=== PATIENT | male | born 1950 | race Caucasian/White ===

== ENCOUNTER 2016-12-25 08:21 | Emergency (ER) | payer OTHER ==
[~2016-12-25] VITALS: Ht 180.3 cm; Wt 77.1 kg
--- NOTE | 2016-12-25 08:35 | ED GENERAL ADULT ---
See Addendum History of Present Illness General Chief Complaint: General Adult Stated Complaint: CONSTIPATION X 1 WEEK Source: patient, family Exam Limitations: no limitations Vital Signs & Intake/Output Vital Signs & Intake/Output Vital Signs Date Time Temp Pulse Resp B/P Pulse O2 O2 Flow FiO2 Ox Delivery Rate 12/25 1623 99.0 88 18 98/54 93 Room Air 12/25 1310 99.3 90 20 120/63 94 Room Air 12/25 1131 98/58 12/25 1124 99.1 81 18 95/55 95 12/25 0909 Room Air Room Air 12/25 0826 96.4 102 18 138/89 95 Room Air Allergies Coded Allergies: NO KNOWN ALLERGIES (12/25/16) Reconcile Medications Acetaminophen (Tylenol Arthritis) 650 MG TABLET.ER 1 TAB PO Q6-PRN PRN PAIN ( Reported) Calcium Carbonate/Vitamin D3 (Calcium 500 + Vit D 200 Tablet) 500 MG-200 TABLET 1 TAB PO 1700 SUPPLEMENT (Reported) Cholecalciferol (Vitamin D3) (Vitamin D3) 2,000 UNIT TABLET 1 TAB PO DAILY SUPPLEMENT (Reported) Famotidine (Pepcid) 20 MG TABLET 2 TAB PO BID PRN GI (Reported) Labetalol HCl 100 MG TABLET 1 TAB PO BID HEART (Reported) Levothyroxine Sodium 75 MCG TABLET 1 TAB PO DAILY AC THYROID (Reported) Nivolumab (Opdivo) 100 MG/10 ML VIAL 240 MG IV CANCER (Reported) Olmesartan Medoxomil (Benicar) 40 MG TABLET 1 TAB PO DAILY HEART (Reported) Oxycodone HCl 5 MG TABLET 1 TAB PO Q4 HRS NEEDED PRN PAIN (Reported) [VARLILUMAB] CANCER (Reported) Triage Note: 66 Y/O MALE C/O CONSTIPATION X 10 DAYS. HAS RENAL CELL CARCINOMA AND WAS STARTED ON OXYCODONE IN NOVEMBER; HAS HAD DIFFICULTY MOVING BOWELS SINCE, DESPITE TRYING OTC MEDS INCLUDING MIRALAX AND FLEETS ENEMAS. C/O ABDOMINAL "SWELLING". ABDOMEN APPEARS FIRM IN TRIAGE. REPORTS INTERMITTENT NAUSEA AND DECREASED PO INTAKE WELL. Triage Nurses Notes Reviewed? yes Onset: Gradual Duration: day(s): Timing: recent history HPI: 12/25/16 8:40 am This is a 66-year-old man who presents to the emergency department for constipation. He has a history of renal cell carcinoma. He is status post right nephrectomy. He is been treated at [facility]. The onset of the symptoms have been gradual, the duration has been the last 10 days, the severity is significant as his symptoms required him to come to the emergency department for care. He has associated constipation and abdominal distention. He was also found to be hypotensive in the ED. He has been treated with BELIMUMAB The last dose was December 12 He presents with constipation. Also abdominal distention. No vomiting, no fever. His labs show significant leukocytosis mild hyperkalemia and CT scan shows carcinomatosis. He is been accepted for transfer to [facility]. 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 No Review of Systems Review of Systems Constitutional: Reports: fever. EENTM: Denies: visual changes. Respiratory: Denies: short of breath. Cardiovascular: Denies: chest pain. GI: Reports: bloating, constipation. Denies: abdominal pain, vomiting. Genitourinary: Reports: no symptoms. Musculoskeletal: Reports: no symptoms. Skin: Reports: no symptoms. Neurological/Psychological: Reports: no symptoms. Hematologic/Endocrine: Reports: no symptoms. Physical Exam Physical Exam General Appearance: awake, anxious, moderate distress Head: atraumatic, normal appearance Eyes: Bilateral: normal appearance, PERRL, EOMI. Ears, Nose, Throat: normal pharynx, normal ENT inspection Neck: normal inspection, supple Respiratory: no respiratory distress Cardiovascular: regular rate/rhythm Peripheral Pulses: 4+ radial (R), 4+ radial (L) Gastrointestinal: non-tender, distended Rectal: heme negative stool Back: decreased range of motion Extremities: pedal edema Neurologic/Psych: no motor/sensory deficits, awake, alert, oriented x 3 Skin: intact, normal color, warm/dry Core Measures ACS in differential dx? No CVA/TIA Diagnosis: No Severe Sepsis Present: No Septic Shock Present: No Progress Differential Diagnoses I considered the following diagnoses in my evaluation of the patient: [ Carcinomatosis, bowel obstruction, adverse drug reaction,] Plan of Care: Orders Procedure Date/time Status Heart Healthy Diet 12/25 D Active EKG 12/25 1244 Active RAPID VIRAL INFLUENZA A 12/25 905 Complete COMPREHENSIVE METABOLIC PANEL 12/25 905 Complete CBC WITHOUT DIFFERENTIAL 12/25 905 Complete Laboratory Tests 12/25/16914: Anion Gap 9, Estimated GFR 41 L, BUN/Creatinine Ratio 22.9, Glucose 111 H, Calcium 8.4, Total Bilirubin 0.4, AST 30, ALT 59, Alkaline Phosphatase 104, Total Protein 4.7 L, Albumin 2.5 L, Globulin 2.2, Albumin/Globulin Ratio 1.1, CBC w Diff MAN DIFF ORDERED, RBC 3.48 L, MCV 99.4 H, MCH 33.3 H, RDW 14.1, MPV 6.6 L, Gran % 77.2 H, Lymphocytes % 1.8 L, Monocytes % 2.6, Eosinophils % 18.4 H, Basophils % 0 L, Absolute Granulocytes 54.2 H, Segmented Neutrophils 32 L, Band Neutrophils 23 H, Absolute Lymphocytes 1.2, Lymphocytes 6 L, Monocytes 7, Absolute Monocytes 1.8 H, Eosinophils 26 H, Absolute Eosinophils 12.9, Absolute Basophils 0, Metamyelocytes 3 H, Myelocytes 2 H, Promyelocytes 1 H, Platelet Estimate INCREASED, Polychromasia 1+, Hypochromic-Microcytic 1+, Anisocytosis 1+, PUBS MCHC 33.5 Initial ED EKG: none Departure Departure Disposition: OTHER [facility] ([facility]) Condition: Stable Clinical Impression Primary Impression: Metastatic carcinoma Secondary Impressions: Carcinoid syndrome Referrals: PADMA COTTON,TEDDY Sanchez (PCP/Family) Departure Forms: Customer Survey General Discharge Information Comments CT results shown below PATIENT: BILL FISHER PRESENT AGE: 66 PATIENT ACCOUNT NO: [id number] : 51 LOCATION: [facility] ORDERING PHYSICIAN: ROSE MARIE BATRES DO SERVICE DATE: 12/25/16 EXAM TYPE: CAT - CT ABD & PELVIS W/O IV CONTRAS EXAMINATION: CT ABDOMEN AND PELVIS WITHOUT CONTRAST CLINICAL INFORMATION: 2 weeks of constipation. Rule out bowel obstruction. History of renal cell carcinoma. COMPARISON: None. TECHNIQUE: Multidetector volumetric imaging was performed from the superior aspect of the liver through the pubic symphysis. Sagittal and coronal reformatted images were obtained on the technologist's workstation. DLP: 471.16 mGy-cm. FINDINGS: The overall evaluation is limited by lack of oral and intravenous contrast. LUNG BASES: Trace bilateral pleural effusions. No pericardial effusion. There is a small hiatal hernia. Bibasilar linear atelectasis. LIVER, GALLBLADDER, AND BILIARY TREE: The liver is normal in size, shape, and attenuation. No focal hepatic lesion or biliary ductal dilatation is present. The gallbladder is unremarkable with no evidence of radiopaque gallstones. PANCREAS: Unremarkable. SPLEEN: Unremarkable. ADRENAL GLANDS: Unremarkable. KIDNEYS AND URETERS: The patient is status post right nephrectomy for renal cell cancer. No definite evidence of recurrent mass in the surgical bed, within the limits of noncontrast study. The left kidney is normal in size, shape and attenuation. No left hydroureteronephrosis. Mild left perinephric stranding is within physiologic limits. BLADDER: Significantly under distended however appears unremarkable. GASTROINTESTINAL TRACT: There is no evidence of abnormal bowel dilatation or bowel obstruction. Evaluation of the bowel is limited due to lack of oral contrast, intravenous contrast, and presence of peritoneal disease and ascites. There is extensive diverticulosis of the sigmoid colon. No evidence of significant stool burden in the colon. PERITONEAL CAVITY, OMENTUM AND MESENTERY: Small abdominal ascites and small to moderate pelvic ascites is present. There is diffuse mesenteric stranding. There is diffuse stranding and nodularity of the omentum, most significant in the right mid abdomen, consistent with peritoneal carcinomatosis, evaluation is somewhat limited by lack of from intravenous contrast. No definite evidence of free intraperitoneal air. ABDOMINAL WALL: Small fat-containing inguinal hernias. LYMPH NODES: No pathologically enlarged lymph nodes are noted. VASCULAR: Aorto iliac vessels are normal in caliber. Mild calcific atherosclerosis of the aortoiliac vessels. PELVIC VISCERA: The seminal vesicles are unremarkable. The prostate is in upper limits of normal for size measuring 4.6 cm in transverse dimension. OSSEOUS STRUCTURES: No acute or suspicious osseous lesions. Mild degenerative changes in the lower thoracic spine. IMPRESSION: 1. No evidence of bowel obstruction or abnormal bowel dilatation. No significant stool burden is noted in the colon. Colonic diverticulosis. 2. Peritoneal carcinomatosis. 3. Ascites. 4. Status post right nephrectomy for renal cell cancer; no definite evidence of recurrent mass in the surgical bed, within the limits of noncontrast study. 5. Trace bilateral pleural effusions. 6. Small hiatal hernia. This critical result was discussed with Dr. Bob Batres at 10:10 AM on 12/25/2016 and it was ascertained that the content and urgency of the report was understood at the time of direct communication. DICTATED BY: BROWN MURGUIA MD DATE/TIME DICTATED:12/25/16958 IP TECHNOLOGY TRANSACTIONS ATTORNEY:ALIYAH DATE/TIME TRANSCRIBED:12/25/16958 CONFIDENTIAL, DO NOT COPY WITHOUT APPROPRIATE AUTHORIZATION. <Electronically signed in Other Vendor System> SIGNED BY: BROWN MURGUIA MD 12/25/16 [facility] Critical Care Note Critical Care Note Critical Care Time: 30-74 min
[2016-12-25] MEDS ORDERED: OXYCODONE HCL5 M1 PO (09:14)
[2016-12-25] MEDS ORDERED: LEVOTHYROXINE75 MCG PO (09:15)
[2016-12-25] MEDS ORDERED: LABETALOL HCL100 M1 PO (09:15)
[2016-12-25] MEDS ORDERED: TYLENOL ARTHRI650 M1 PO (09:15)
[2016-12-25] MEDS ORDERED: PEPCID20 M1 PO (09:16)
[2016-12-25] MEDS ORDERED: BENICAR40 M1 PO (09:16)
[2016-12-25] MEDS ORDERED: VITAMIN D32000 UNI1 PO (09:17)
[2016-12-25] MEDS ORDERED: CALCIUM 500 +1 EAC2 PO (09:17)
[2016-12-25] MEDS ORDERED: [UNRECOGNIZED DRUG - OTHER] (09:19)
[2016-12-25] MEDS ORDERED: OPDIVO100 MG/10 IV (09:19)
[2016-12-25 09:36] LABS: ABSOLUTE BASOPHIL COUNT 0 /CUMM (0.0-0.2); ABSOLUTE EOSINOPHIL COUNT 12.9 /CUMM (0.0-0.7); ABSOLUTE GRANULOCYTE CT 54.2 /CUMM (1.4-6.5); ABSOLUTE LYMPH COUNT 1.2 /CUMM (1.2-3.4); ABSOLUTE MONOCYTE COUNT 1.8 /CUMM (0.10-0.60); BASOPHIL % 0 % (0.0-2.0); EOSINOPHIL % 18.4 % (0-5); GRANULOCYTE % 77.2 % (42.2-75.2); HEMATOCRIT 34.6 % (42-52); MEAN CORPUSCULAR HGB 33.3 PG (27.0-31.0); MEAN CORPUSCULAR HGB CONC 33.5 G/DL (33.0-37.0); MEAN CORPUSCULAR VOLUME 99.4 FL (80.0-94.0); MEAN PLATELET VOLUME 6.6 FL (7.4-10.4); PLATELET COUNT 533 /CUMM (130-400); RBC DISTRIBUTION WIDTH 14.1 % (11.5-14.5); RED BLOOD CELL CT 3.48 /CUMM (4.70-6.10)
[2016-12-25 09:57] LABS: WHITE BLOOD CELL COUNT 70.2 /CUMM (4.8-10.8)
--- NOTE | 2016-12-25 10:38 | CT SCAN REPORT ---
EXAMINATION: CT ABDOMEN AND PELVIS WITHOUT CONTRAST CLINICAL INFORMATION: 2 weeks of constipation. Rule out bowel obstruction. History of renal cell carcinoma. COMPARISON: None. TECHNIQUE: Multidetector volumetric imaging was performed from the superior aspect of the liver through the pubic symphysis. Sagittal and coronal reformatted images were obtained on the technologist's workstation. DLP: 471.16 mGy-cm. FINDINGS: The overall evaluation is limited by lack of oral and intravenous contrast. LUNG BASES: Trace bilateral pleural effusions. No pericardial effusion. There is a small hiatal hernia. Bibasilar linear atelectasis. LIVER, GALLBLADDER, AND BILIARY TREE: The liver is normal in size, shape, and attenuation. No focal hepatic lesion or biliary ductal dilatation is present. The gallbladder is unremarkable with no evidence of radiopaque gallstones. PANCREAS: Unremarkable. SPLEEN: Unremarkable. ADRENAL GLANDS: Unremarkable. KIDNEYS AND URETERS: The patient is status post right nephrectomy for renal cell cancer. No definite evidence of recurrent mass in the surgical bed, within the limits of noncontrast study. The left kidney is normal in size, shape and attenuation. No left hydroureteronephrosis. Mild left perinephric stranding is within physiologic limits. BLADDER: Significantly under distended however appears unremarkable. GASTROINTESTINAL TRACT: There is no evidence of abnormal bowel dilatation or bowel obstruction. Evaluation of the bowel is limited due to lack of oral contrast, intravenous contrast, and presence of peritoneal disease and ascites. There is extensive diverticulosis of the sigmoid colon. No evidence of significant stool burden in the colon. PERITONEAL CAVITY, OMENTUM AND MESENTERY: Small abdominal ascites and small to moderate pelvic ascites is present. There is diffuse mesenteric stranding. There is diffuse stranding and nodularity of the omentum, most significant in the right mid abdomen, consistent with peritoneal carcinomatosis, evaluation is somewhat limited by lack of from intravenous contrast. No definite evidence of free intraperitoneal air. ABDOMINAL WALL: Small fat-containing inguinal hernias. LYMPH NODES: No pathologically enlarged lymph nodes are noted. VASCULAR: Aorto iliac vessels are normal in caliber. Mild calcific atherosclerosis of the aortoiliac vessels. PELVIC VISCERA: The seminal vesicles are unremarkable. The prostate is in upper limits of normal for size measuring 4.6 cm in transverse dimension. OSSEOUS STRUCTURES: No acute or suspicious osseous lesions. Mild degenerative changes in the lower thoracic spine. IMPRESSION: 1. No evidence of bowel obstruction or abnormal bowel dilatation. No significant stool burden is noted in the colon. Colonic diverticulosis. 2. Peritoneal carcinomatosis. 3. Ascites. 4. Status post right nephrectomy for renal cell cancer; no definite evidence of recurrent mass in the surgical bed, within the limits of noncontrast study. 5. Trace bilateral pleural effusions. 6. Small hiatal hernia. This critical result was discussed with Dr. Bob Norton at 10:10 AM on 12/25/2016 and it was ascertained that the content and urgency of the report was understood at the time of direct communication.
[2016-12-25 16:23] VITALS: BP 98/54
== END 2016-12-25 17:39 | disposition short-term general hospital (02) ==
LOC: ERH 08:21
PROVIDERS: Emergency Medicine
DX: C7A.093 Malignant carcinoid tumor of the kidney (principal); C79.9 Secondary malignant neoplasm of unspecified site; I10 Essential (primary) hypertension; E03.9 Hypothyroidism, unspecified
CPT/HCPCS: 74176; 87804; 87804-59; 93005; 93010; 99291